=== PATIENT | female | born 1950 | race Hispanic/Latino ===

== ENCOUNTER 2017-08-27 19:09 | Emergency (ER) | payer MEDICARE ==
[2017-08-27 19:14] VITALS: BP 133/76; PULSE 88; RESP 18; TEMP 98.9; O2SAT 100
--- NOTE | 2017-08-27 22:38 | ED PDOC ---
HPI: Back Time Seen by Provider: 08/27/17 19:16 Chief Complaint (Nursing): Back Pain Chief Complaint (Provider): LEft flank pain, acute onset during cough Additional Complaint(s): 66 yo female presents with cough for 6 weeks. PT states she was coughing today and had acute onset of right flank pain/spasm. PT reports pain comes and goes and is sharp. Pt states it is not worse with deep breathing but when it comes she cannot breath due to the pain. No SOB, no chest pain. No diaphoresis. Past Medical History Reviewed: Historical Data, Nursing Documentation, Vital Signs Vital Signs: Last Vital Signs Temp 98.9 F 08/27/17 19:11 Pulse 88 08/27/17 19:11 Resp 18 08/27/17 19:11 BP 133/76 08/27/17 19:11 Pulse Ox 100 08/27/17 19:11 - Medical History PMH: Migraine (optical), Pneumonia (age 8) - Surgical History Surgical History: No Surg Hx - Family History Family History: States: No Known Family Hx - Living Arrangements Living Arrangements: With Family - Immunization History Hx Tetanus Toxoid Vaccination: No Hx Influenza Vaccination: No Hx Pneumococcal Vaccination: No - Home Medications Home Medications: Ambulatory Orders Medication Instructions Recorded Cyclobenzaprine [Cyclobenzaprine 10 mg PO Q8H PRN #12 tab 08/27/17 HCl] Ibuprofen [Motrin Tab] 800 mg PO Q6H PRN #20 tab 08/27/17 - Allergies Allergies/Adverse Reactions: Allergies Allergy/AdvReac Type Severity Reaction Status Date / Time No Known Allergies Allergy Verified 08/27/17 19:18 Review of Systems ROS Statement: Except As Marked, All Systems Reviewed And Found Negative Gastrointestinal: Positive for: Other Physical Exam - Reviewed Nursing Documentation Reviewed: Yes Vital Signs Reviewed: Yes - Physical Exam Appears: Positive for: Well, Non-toxic, No Acute Distress Head Exam: Positive for: ATRAUMATIC, NORMAL INSPECTION, NORMOCEPHALIC Skin: Positive for: Normal Color, Warm, DRY Eye Exam: Positive for: Normal appearance ENT: Positive for: Normal ENT Inspection Neck: Positive for: Normal, Painless ROM Cardiovascular/Chest: Positive for: Regular Rate, Rhythm, Chest Non Tender, Other (No tenderness of the right flank, no crepitus, no step off ) Respiratory: Positive for: CNT, Normal Breath Sounds Gastrointestinal/Abdominal: Positive for: Normal Exam, Bowel Sounds, Soft Back: Positive for: Normal Inspection Extremity: Positive for: Normal ROM Neurologic/Psych: Positive for: Alert, Oriented - ECG O2 Sat by Pulse Oximetry: 100 Medical Decision Making Medical Decision Making: Pt seen and examined by Dr. Mccoy, disposition discussed. Disposition - Clinical Impression Clinical Impression: Flank pain - Patient ED Disposition Is Patient to be Admitted: No Counseled Patient/Family Regarding: Diagnosis, Need For Followup, Rx Given - Disposition Disposition: Routine/Home Disposition Time: 22:36 Condition: GOOD Prescriptions: Cyclobenzaprine [Cyclobenzaprine HCl] 10 mg PO Q8H PRN #12 tab PRN Reason: Muscle Spasm Ibuprofen [Motrin Tab] 800 mg PO Q6H PRN #20 tab PRN Reason: Pain Instructions: Flank Pain
--- NOTE | 2017-08-28 17:36 | RAD ---
HISTORY: Flank pain after coughing. COMPARISON: No prior. TECHNIQUE: Chest PA and lateral FINDINGS: LUNGS: No acute consolidation. There appears to be some minor linear scarring changes in the left mid to lower lung field. There is a vague small approximately 5.8 mm rounded nodular density right upper lung field overlying the right posterior 6 rib which could represent confluence of shadow artifact however a parenchymal nodule must be excluded. Followup the CT scan of the chest recommended. PLEURA: No significant pleural effusion identified. No pneumothorax apparent. CARDIOVASCULAR: Heart size within range of normal. OSSEOUS STRUCTURES: No significant abnormalities. VISUALIZED UPPER ABDOMEN: Normal. OTHER FINDINGS: None. IMPRESSION: Minor linear atelectasis or scarring left mid to lower lung field. No acute consolidation. There appears to be some minor linear scarring changes in the left mid to lower lung field. There is a vague small approximately 5.8 mm rounded nodular density right upper lung field overlying the right posterior 6 rib which could represent confluence of shadow artifact however a parenchymal nodule must be excluded. Followup the CT scan of the chest recommended. Note this report was placed in PA review folder for followup.
--- NOTE | 2017-08-29 12:15 | CARD ---
APPROVED REPORT EKG Measurement Heart [id number] <Conclusion> Normal sinus rhythm Normal ECG
== END 2017-08-27 22:51 | disposition home or self-care (01) ==
LOC: H.ER 19:09
DX: R10.9 Unspecified abdominal pain (principal); M54.9 Dorsalgia, unspecified
CPT/HCPCS: 71046; 93005; 96372; 99282; J1885

== ENCOUNTER 2018-05-11 22:29 | Emergency (ER) | payer MEDICARE ==
[2018-05-11] MEDS ORDERED: Sodium Chloride 0.9% 1,000 ML IV STA (22:48)
[2018-05-11 23:57] LABS: VENOUS BLOOD GAS BASE EXCESS 1.9 mmol/L (0.0-2.0); VENOUS BLOOD GAS PCO2 27 mmHg (40-60); VENOUS BLOOD GAS PO2 42 mm/Hg (30-55); VENOUS BLOOD PH 7.54 (7.32-7.43)
--- NOTE | 2018-05-12 00:12 | ED PDOC ---
HPI: Abdomen Time Seen by Provider: 05/11/18 22:39 Chief Complaint (Nursing): Altered Mental Status Chief Complaint (Provider): Abdominal pain History Per: Patient History/Exam Limitations: no limitations Onset/Duration Of Symptoms: Hrs Location Of Pain/Discomfort: Diffuse Associated Symptoms: Vomiting Additional Complaint(s): 67 years old female with history of diabetes, ulcerative colitis and recent partial colectomy involving sigmoid ascending presents to ER for evaluation of abdominal pain onset today. Patient reports having gastrografin enema and since then she has been having increasing abdominal pain associated with vomiting. While in ER, patient developed bloody stools output, confusion and altered mental status, which daughter reports she typically gets when she has pain from ulcerative colitis. Patient is on treatment for ulcer colitis with Dr. Maloney. PMD: Dr. Benton Surgeon: Dr. Maloney Past Medical History Reviewed: Historical Data, Nursing Documentation, Vital Signs Vital Signs: Last Vital Signs Temp 97.6 F 05/11/18 22:30 Pulse 81 05/11/18 22:30 Resp 16 05/11/18 22:30 BP 172/95 H 05/11/18 22:30 Pulse Ox 99 05/11/18 22:30 - Medical History PMH: Diabetes, Migraine (optical), Pneumonia (age 8) Other PMH: Ulcer colitis - Surgical History Other surgeries: Colectomy, gastrografin enema. - Family History Family History: States: Unknown Family Hx - Social History Current smoker - smoking cessation education provided: No Alcohol: None Drugs: Denies - Immunization History Hx Tetanus Toxoid Vaccination: No Hx Influenza Vaccination: No Hx Pneumococcal Vaccination: No - Home Medications Home Medications: Ambulatory Orders Medication Instructions Recorded Cyclobenzaprine [Cyclobenzaprine 10 mg PO Q8H PRN #12 tab 08/27/17 HCl] Ibuprofen [Motrin Tab] 800 mg PO Q6H PRN #20 tab 08/27/17 - Allergies Allergies/Adverse Reactions: Allergies Allergy/AdvReac Type Severity Reaction Status Date / Time No Known Allergies Allergy Verified 08/27/17 19:18 Review of Systems ROS Statement: Except As Marked, All Systems Reviewed And Found Negative Gastrointestinal: Positive for: Vomiting, Abdominal Pain, Hematochezia Neurological: Positive for: Confusion, Altered Mental Status Physical Exam - Reviewed Nursing Documentation Reviewed: Yes Vital Signs Reviewed: Yes - Physical Exam Appears: Positive for: Uncomfortable, In Acute Distress Head Exam: Positive for: ATRAUMATIC, NORMOCEPHALIC Skin: Positive for: Warm, Dry, Pallor Eye Exam: Positive for: EOMI, PERRL ENT: Positive for: Other (Moist mucous membrane) Neck: Positive for: Painless ROM, Supple Cardiovascular/Chest: Positive for: Regular Rate, Rhythm, Tachycardia. Negative for: Murmur Respiratory: Positive for: Normal Breath Sounds. Negative for: Respiratory Distress Gastrointestinal/Abdominal: Positive for: Bowel Sounds (Hyperactive), Soft, Tenderness (Diffused on palpation), Other (colostomy in place with mild skin breakdown near adhesive site. Stools are grossly bloody). Negative for: Di stended Back: Negative for: Decreased ROM Extremity: Positive for: Normal ROM. Negative for: Tenderness, Swelling Lymphatic: Negative for: Adenopathy Neurologic/Psych: Positive for: Alert, Mood/Affect (anxious affect). Negative for: Oriented, Motor/Sensory Deficits, Facial Droop - Laboratory Results Result Diagrams: 05/11/18 23:50 05/11/18 23:50 - ECG O2 Sat by Pulse Oximetry: 99 (RA) Pulse Ox Interpretation: Normal Medical Decision Making Medical Decision Making: Time: 2246 Initial Impression: acute abdominal pain. Differential includes but not limited to obstruction, bowel leak mesenteric ischemia, GI bleed, exacerbation of UC. Initial Plan: --VBG --CT abd/pelvis IV contrast --CMP --Lipase --Magnesium --Phosphorous --CBC --PTT --PT --Compazine 10 mg IM --Dextrose 5%-0.9% 1,000 ml IV 100 mls/hr --Protonix 40 mg IVP --Zofran 8 mg IV --Blood culture --Urine culture [address] Maloney, pt's private surgeon, who agrees with treatment and plan for CT and symptomatic relief for now. [address] Huynh, pending workup, CT and reassessment of patient and final ER disposition. Scribe Attestation: Documented by Agatha Hensley, acting as a scribe for Oliva Alcantara MD. Provider Scribe Attestation: All medical record entries made by the Scribe were at my direction and personally dictated by me. I have reviewed the chart and agree that the record accurately reflects my personal performance of the history, physical exam, medical decision making, and the department course for this patient. I have also personally directed, reviewed, and agree with the discharge instructions and disposition. Disposition - Clinical Impression Clinical Impression: Abdominal pain - Disposition Disposition: Transfer of Care Disposition Time: 00:00 Condition: FAIR
[2018-05-12 00:13] LABS: BASO # 0.1 K/uL (0.0-0.2); BASO % 0.6 % (0.0-2.0); EOS % 0.1 % (0.0-4.0); LYMPH # 0.4 K/uL (1.0-4.3); MEAN CELL VOLUME 89.9 fl (81.0-99.0); MEAN CORPUSCULAR HEMOGLOBIN 29.8 pg (27.0-31.0); MEAN CORPUSCULAR HGB CONC 33.1 g/dL (33.0-37.0); MEAN PLATELET VOLUME 8.2 fl (7.2-11.7); MONO # 0.3 K/uL (0.0-0.8); MONO % 2.6 % (0.0-10.0); NEUT % 92.7 % (50.0-75.0); PLATELET COUNT 271 K/uL (130-400); RBC 5.04 Mil/uL (3.80-5.20); RED CELL DISTRIBUTION WIDTH 15.8 % (11.5-14.5); WHITE BLOOD COUNT 9.7 K/uL (4.8-10.8)
[2018-05-12 00:16] LABS: PROTHROMBIN TIME 11.7 Seconds (9.8-13.1)
[2018-05-12 00:17] LABS: ALB/GLOB RATIO 1.2 (1.0-2.1); ALBUMIN 4.5 g/dL (3.5-5.0); ALT/SGPT 28 U/L (9-52); AST/SGOT 28 U/L (14-36); BLOOD UREA NITROGEN 14 mg/dl (7-17); CALCIUM 9.5 mg/dL (8.4-10.2); GFR NON-AFRICAN AMERICAN > 60; LIPASE 85 U/L (23-300)
[2018-05-12 00:19] LABS: PARTIAL THROMBOPLASTIN TIME 27.6 Seconds (25.6-37.1)
--- NOTE | 2018-05-12 00:24 | ED PDOC ---
- Laboratory Results Result Diagrams: 05/11/18 23:50 05/11/18 23:50 - ECG O2 Sat by Pulse Oximetry: 99 (RA) Pulse Ox Interpretation: Normal Medical Decision Making Medical Decision Makin Received endorsement from Dr. Alcantara, pending workup, CT and reassessment. 0243 CT Abd/Pelvis Findings: COMMENTS: Bilateral basilar subsegmental atelectatic airspace disease. Moderate partial small bowel obstruction. Transition zone in the left lower quadrant. Moderate amount of free fluid in the abdomen more prominent in the left upper quadrant with associated mesenteric congestion/fat stranding. Contrast is noted in the colon. Right lower quadrant enterostomy is unremarkable. Pessary is noted in place. Distended bladder. The liver is of uniform attenuation without mass or defect. There is no intra or extrahepatic biliary ductal dilatation. The spleen is normal. The gallbladder is within normal limits. The pancreas is of normal contour and attenuation characteristics. There is no evidence of adrenal mass. Both kidneys demonstrate prompt and equal nephrograms. The kidneys are normal in size, shape and configuration. There is no evidence of renal or ureteral mass. No renal or ureteral calculi are identified. There is no hydroureter or hydronephrosis. There is no evidence of intrinsic or extrinsic bladder mass. Images of the lung bases show no evidence of pleural or parenchymal mass. There are no pleural effusions. The bony structures are free of lytic or blastic lesions. IMPRESSION: Bilateral basilar subsegmental atelectatic airspace disease. Moderate partial small bowel obstruction. Transition zone in the left lower quadrant. Moderate amount of free fluid in the abdomen more prominent in the left upper quadrant with associated mesenteric congestion/fat stranding. Contrast is noted in the colon. Right lower quadrant enterostomy is unremarkable. Pessary is noted in place. Distended bladder. 0250 Labs reviewed and show slight neutrophil elevation [address] Maloney pt surgeon at [facility] on cell phone ([phone]) who accepted the patient and is aware of CT results. communicatd that with patient and daughter at bedside. pt reevaluated, resting in no distress, no vomiting colostomy bag changed by RN Patient will be transferred to [facility], as per request of family because that is where pts surgeon is. spoke to transfer center at [facility] who accepted pt, Dr. Howie knowles rom surgery (resident) aware and Dr. Adam from ER are aware. Transport will be delayed 3 hours due to weather condition. [address] Caraballo, pending transfer. ----- Scribe Attestation: Documented by Agatha Hensley, acting as a scribe for Eugenie Huynh MD. Provider Scribe Attestation: All medical record entries made by the Scribe were at my direction and personally dictated by me. I have reviewed the chart and agree that the record accurately reflects my personal performance of the history, physical exam, medical decision making, and the department course for this patient. I have also personally directed, reviewed, and agree with the discharge instructions and disposition. Disposition - Clinical Impression Clinical Impression: Abdominal pain - POA Present On Arrival: None - Disposition Disposition: Transfer of Care Disposition Time: 07:00 Condition: FAIR Patient Signed Over To: Jarred Caraballo
[2018-05-12] MEDS ORDERED: Iohexol 300 100 ML IJ ONE (01:16)
[2018-05-12] MEDS ORDERED: Sodium Chloride 0.9% 50 ML IV ONE (01:17)
[2018-05-12 02:10] LABS: BANDS 3 % (0-2); LYMPHOCYTE 3 % (20-50); MONOCYTE 2 % (0-10); NEUTROPHIL 92 % (42-75); TOTAL CELLS COUNTED 100
[2018-05-12 02:11] LABS: LARGE PLATELETS PRESENT; PLATELET ESTIMATE NORMAL (NORMAL)
[2018-05-12 03:01] LABS: VENOUS BLOOD GAS BASE EXCESS 0.1 mmol/L (0.0-2.0); VENOUS BLOOD GAS PCO2 39 mmHg (40-60); VENOUS BLOOD GAS PO2 35 mm/Hg (30-55); VENOUS BLOOD PH 7.41 (7.32-7.43)
[2018-05-12 08:07] VITALS: TEMP 97
[2018-05-12] MEDS ORDERED: Morphine 4 MG/ML VIAL IVP ONE (08:15)
[2018-05-12 10:29] VITALS: BP 138/94; PULSE 98; RESP 19
--- NOTE | 2018-05-12 10:41 | CT ---
Date of service: 05/12/2018 PROCEDURE: CT Abdomen and Pelvis with contrast HISTORY: abd pain acute vomiting h/o UC and partial colecto COMPARISON: None. TECHNIQUE: Contrast dose: Axial and reformatted coronal and sagittal CT images of the abdomen and pelvis were obtained after IV contrast administration. Radiation dose: Total exam DLP = 529.47 mGy-cm. This CT exam was performed using one or more of the following dose reduction techniques: Automated exposure control, adjustment of the mA and/or kV according to patient size, and/or use of iterative reconstruction technique. FINDINGS: LOWER THORAX: There are bibasilar atelectasis noted. No evidence of significant pleural effusion or pneumothorax. LIVER: Mild hepatomegaly is noted. There is diffuse [id number] decreased attenuation of the liver suggestive of hepatic steatosis. GALLBLADDER AND BILE DUCTS: Distended gallbladder without evidence of acute cholecystitis. PANCREAS: Small size pancreas noted without evidence of acute pancreatitis. The main pancreatic duct is not dilated. SPLEEN: Unremarkable. ADRENALS: Unremarkable. No mass. KIDNEYS AND URETERS: Unremarkable. No hydronephrosis. No solid mass. VASCULATURE: Unremarkable. No aortic aneurysm. No aortic atherosclerotic calcification or mural plaque present. BOWEL: The patient is status post right-sided ileostomy. The patient is likely status post subtotal colectomy. There are mildly to moderately dilated small bowel loops noted at the left mid and upper abdomen demonstrate small bowel feces sign. There is closed loop small bowel obstruction noted at the left mid to lower abdomen with dilated thick wall small bowel loop that also demonstrates intestinal pneumatosis. Collapsed mid and distal small bowel loops noted in the mid right and left lower abdomen. There is retained oral contrast noted in the distal large bowel likely from prior study. APPENDIX: The appendix is not visualized and likely resected with the right colon. PERITONEUM: There is small amount of ascites more prominent in the left mid and upper abdomen. No evidence of significant free air in the abdomen and pelvis. LYMPH NODES: Mildly enlarged mesenteric lymph nodes are noted. BLADDER: The urinary bladder is mildly distended. REPRODUCTIVE: The uterus and adnexa are visualized. There is a pessary noted in place at the lower pelvis BONES: There is a age indeterminate mild compression deformity at L3 and L4 superior endplate. There is a grade 1 anterior spondylolisthesis of L4 relative to L5 and L5 relative to S1. There is diffuse osteopenia noted. OTHER FINDINGS: None. IMPRESSION: Findings suggestive of high-grade small bowel obstruction with possible closed loop small bowel obstruction at the left lower abdomen. Small bowel feces sign and small bowel pneumatosis noted at the left mid to lower abdomen. Small amount of free fluid in the left mid and upper abdomen likely related to small bowel obstruction. Surgical consultation is recommended. Additional findings as described above. The above findings were reported to the emergency room nurse which states that the patient was transversed to [facility] in [place]. Preliminary report was submitted by [facility] to the referring physician on 05/12/2018 at 2:43 a.m..
[2018-05-16 00:35] VITALS: O2SAT 99
== END 2018-05-12 10:29 | disposition short-term general hospital (02) ==
LOC: H.ER 22:29
DX: R10.9 Unspecified abdominal pain (principal); E11.9 Type 2 diabetes mellitus without complications; K56.600 Partial intestinal obstruction, unspecified as to cause; K51.90 Ulcerative colitis, unspecified, without complications
CPT/HCPCS: 74177; 80053; 82803; 82948; 83690; 83735; 84100; 85025; 85610; 85730; 87040; 96372; 96374; 96375; 96376; 99285; C9113; J0780; J2270; J2405; J7030; J7042; Q9967